=== PATIENT | female | born 1950 | race Caucasian/White ===

== ENCOUNTER 2021-06-24 07:33 | Inpatient (IN) ==
[~2021-06-24 07:33] MED LIST: 0.9 % Sodium Chloride 1,000 ML ONE
[2021-06-24] MEDS ORDERED: Sugammadex Sodium 200 MG/2 ML VIAL IV ONE (07:58)
[2021-06-24] MEDS ORDERED: Protamine Sulfate 50 MG/5 ML VIAL IVP ONE (08:14)
[2021-06-24] MEDS ORDERED: Heparin 1,000 UNITS/500 mL 2,000 ML ONE (08:15)
[2021-06-24] MEDS ORDERED: ISOVUE-370 200 ML INFUS..BTL ONE (08:15)
[2021-06-24] MEDS ORDERED: *HR* Heparin 10,000 UNIT/10 ML VIAL ONE (08:15)
[2021-06-24] MEDS ORDERED: 0.9 % Sodium Chloride 1,000 ML ONE (08:15)
[2021-06-24] MEDS ORDERED: Ondansetron 4 MG/2 ML VIAL IVP PRN (08:30)
[2021-06-24] MEDS ORDERED: *HR* FentaNYL (PF) 100 MCG/2 ML VIAL ONE (08:34)
[2021-06-24] MEDS ORDERED: Naloxone 0.4 MG/ML INJ IVP PRN (10:52)
[2021-06-24] MEDS ORDERED: *HR* Succinylcholine 200 MG/10 ML VIAL IVP ONE (11:02)
[2021-06-24] MEDS ORDERED: Ondansetron 4 MG/2 ML VIAL IVP ONE (11:02)
[2021-06-24] MEDS ORDERED: Lidocaine -MPF 2% 5 ML VIAL SQ ONE (11:02)
[2021-06-24] MEDS ORDERED: *HR* Propofol 200 MG/20 ML VIAL IVP ONE (11:02)
[2021-06-24] MEDS ORDERED: *HR* Rocuronium Bromide 50 MG/5 ML VIAL IVP ONE (11:02)
[2021-06-24] MEDS ORDERED: *HR* Phenylephrine 10 MG/ML VIAL IVC ONE (11:02)
[2021-06-24] MEDS ORDERED: EPHEDrine 50 MG/ML VIAL IVP ONE (11:02)
[2021-06-24] MEDS ORDERED: Ondansetron 4 MG/2 ML VIAL ONE (13:32)
[2021-06-24] MEDS: Ringers Solution, Lactated 1,000 ML IVC SCH (18:01)
[2021-06-24] MEDS: Metoprolol XL (24 HR) Succ 50 MG TAB.ER.24H PO SCH (20:29)
[2021-06-24] MEDS: Apixaban 5 MG TABLET PO SCH (20:29)
[2021-06-24] MEDS: URSODIOL 500 MG PO SCH (20:29)
[2021-06-24] MEDS ORDERED: Melatonin 3 MG TABLET PO SCH (21:00)
[2021-06-25 03:17] VITALS: PULSE 74
[2021-06-25 07:25] VITALS: BP 100/53; TEMP 98.5; O2SAT 97
[2021-06-25] MEDS ORDERED: Famotidine 20 MG TABLET PO SCH (07:30)
[2021-06-25] MEDS: Ringers Solution, Lactated 1,000 ML IVC SCH (08:17)
[2021-06-25] MEDS: URSODIOL 500 MG PO SCH (08:26)
[2021-06-25] MEDS: Metoprolol XL (24 HR) Succ 50 MG TAB.ER.24H PO SCH (08:27)
[2021-06-25] MEDS: Apixaban 5 MG TABLET PO SCH (08:27)
[2021-06-25] MEDS ORDERED: Cyanocobalamin (B-12) 1,000 MCG TABLET PO SCH (09:00)
[2021-06-25] MEDS ORDERED: Multivit/Ca/Min/Fe/FA 1 TAB TABLET PO SCH (09:00)
[2021-06-25] MEDS ORDERED: DilTIAZem CD (24hr) 120 MG CAP.ER.24H PO SCH (09:00)
[2021-06-25] MEDS ORDERED: GLUCOS SUL PO SCH (09:00)
[2021-06-25] MEDS ORDERED: hydroCHLOROthiazide 25 MG TABLET PO SCH (09:00)
[2021-06-25] MEDS ORDERED: Cholecalciferol (D-3) 1,000 UNIT (25MCG) TABLET PO SCH (09:00)
[2021-06-25] MEDS ORDERED: Vitamin E 200 UNIT (90MG) CAPSULE PO SCH (09:00)
[2021-06-25] MEDS ORDERED: [UNRECOGNIZED DRUG - OTHER] PO SCH (09:00)
== END 2021-06-25 11:03 | disposition home or self-care (01) | DRG 274 ==
LOC: INVDIALAB 07:33 → 2NNU 17:16
PROVIDERS: ADMIT Internal Medicine Clinical Cardiac Electrophysiology; ATTEND Internal Medicine Clinical Cardiac Electrophysiology